=== PATIENT | female | born 1950 | race Caucasian/White ===

== ENCOUNTER 2017-09-24 14:47 | Emergency (ER) | payer BC ==
[2017-09-24 15:26] VITALS: BP 108/68
--- NOTE | 2017-09-24 16:48 | UC ---
Respiratory Complaint HPI - HPI Summary HPI Summary: PT WITH 3 DAYS OF SINUS PRESSURE, PND AND COUGH. FEELS VERY NAUSEATED AND IS NOT EATING MUCH. FEELS SHE IS GETTING WEAKER AND WEAKER EVERY DAY. HAS SUBJECTIVE FEVER AND OVERALL MALAISE. HAS SOME ABDOMINAL DISCOMFORT AND STATES HER BOWEL MVMTS HAVE BEEN DIFFERENT - SMALL PIECES. DENIES RECENT WEIGHT LOSS. - History of Current Complaint Chief Complaint: UCRespiratory Stated Complaint: SINUS PAIN, ACID REFLUX Time Seen by Provider: 09/24/17 15:37 Hx Obtained From: Patient Onset/Duration: Gradual Onset, Lasting Days, Still Present Timing: Constant Severity Initially: Moderate Severity Currently: Moderate Pain Intensity: 0 Pain Scale Used: 0-10 Numeric Character: Cough: Nonproductive Aggravating Factors: Nothing Alleviating Factors: Nothing Associated Signs And Symptoms: Positive: Fever, Sinus Discomfort. Negative: Dyspnea, Wheezing, Hemoptysis, Dizziness - Allergies/Home Medications Allergies/Adverse Reactions: Allergies Allergy/AdvReac Type Severity Reaction Status Date / Time latex Allergy Mild Rash And Verified 09/24/17 15:26 Itching PMH/Surg Hx/FS Hx/Imm Hx GI/ History: Gastroesophageal Reflux - Surgical History Surgical History: Yes Surgery Procedure, Year, and Place: carpal tunnel right - Family History Known Family History: Negative: Hypertension - Social History Alcohol Use: Occasionally Substance Use Type: None Smoking Status (MU): Never Smoked Tobacco Review of Systems Constitutional: Fatigue ENT: Sinus Congestion Respiratory: Cough Cardiovascular: Negative Gastrointestinal: Diarrhea, Nausea Neurological: Weakness All Other Systems Reviewed And Are Negative: Yes Physical Exam Triage Information Reviewed: Yes Appearance: No Pain Distress, Well-Nourished, Other: - APPEARS FATIGUED Vital Signs: Initial Vital Signs Temp 100.4 F 09/24/17 15:21 Pulse 83 09/24/17 15:21 Resp 18 09/24/17 15:21 BP 108/68 09/24/17 15:21 Pulse Ox 98 09/24/17 15:21 Vital Signs Reviewed: Yes Eyes: Positive: Conjunctiva Clear ENT: Positive: Hearing grossly normal, Pharynx normal, TMs normal. Negative: Sinus tenderness Neck: Positive: Supple, Nontender, No Lymphadenopathy Respiratory Exam: Normal Cardiovascular Exam: Normal Abdomen Description: Positive: Soft, Other: - TTP EPIGASTRIC AREA AND LLQ. Negative: Distended Bowel Sounds: Positive: Hyperactive Musculoskeletal: Positive: No Edema Neurological: Positive: Alert Psychological: Positive: Age Appropriate Behavior Skin: Negative: rashes UC Diagnostic Evaluation - Laboratory O2 Sat by Pulse Oximetry: 98 Respiratory Course/Dx - Course Course Of Treatment: PT WITH PROGRESSIVE WEAKNESS, NAUSEA, LOW GRADE TEMP, ABDOMINAL PAIN AND CHANGE IN BOWEL HABITS. CONCERN FOR MORE SERIOUS UNDERLYING CONDITION. PT DECLINES TRANSFER TO ED. ADVISED THAT SHE COULD BE RISKING WORSENING OF HER CONDITION THAT COULD POSE A THREAT TO HER LIFE, HEALTH AND MEDICAL SAFETY. SHE VERBALIZES UNDERSTANDING AND CONTINUES TO DECLINE TRANSFER. - Differential Dx/Diagnosis Provider Diagnoses: WEAKNESS/NAUSEA Discharge - Sign-Out/Discharge Documenting (check all that apply): Discharge - Discharge Plan Condition: Stable Disposition: HOME Prescriptions: Ondansetron ODT TAB* [Zofran Odt TAB*] 4 mg PO Q6H PRN #20 tab.odt PRN Reason: Nausea/Vomiting Patient Education Materials: Weakness (ED), Abdominal Pain (ED) Referrals: Susu Conde MD [Primary Care Provider] - If Needed Additional Instructions: YOUR NAUSEA MAY BE DUE TO YOUR RECENT UPPER RESPIRATORY SYMPTOMS BUT I AM CONCERNED FOR MORE SERIOUS UNDERLYING CONDITION GIVEN YOUR LACK OF APPETITE AND PROGRESSIVE WEAKNESS. YOU HAVE DECLINED TRANSFER TO THE ED TODAY WITH THE UNDERSTANDING THAT YOUR CONDITION MAY WORSEN LEADING TO RESPIRATORY DISTRESS/FAILURE, CARDIAC ARREST, /DISABILITY. GO TO THE ER WITHOUT FAIL IF YOU DEVELOP WORSENING PAIN, NAUSEA, WEAKNESS, FEVER OR ANY OTHER CONCERNING SYMPTOMS. - Billing Disposition and Condition Condition: STABLE Disposition: HOME
== END 2017-09-24 16:10 | disposition home or self-care (01) ==
LOC: UCEAST 14:47
DX: R53.1 Weakness (principal); R11.0 Nausea
CPT/HCPCS: 99212; G0463

== ENCOUNTER 2017-09-25 19:42 | Emergency (ER) | payer BC ==
[2017-09-25] MEDS ORDERED: NS 0.9% 1000 ML* 1,000 ML IV ONE (20:56)
[2017-09-25] MEDS ORDERED: Meclizine TAB* 12.5 MG PO ONE (20:59)
[2017-09-25 21:16] LABS: ABS Basophils 0 10^3/ul (0-0.2); ABS Eosinophils 0 10^3/ul (0-0.6); ABS Lymphocytes 1.1 10^3/ul (1.0-4.8); ABS Monocytes 0.5 10^3/ul (0-0.8); ABS Neutrophils 2.6 10^3/ul (1.5-7.7); ABS Nucleated RBC 0 10^3/ul; Eosinophil % 0.4 % (0-6); Hematocrit 41 % (35-47); Hemoglobin 13.7 g/dl (12.0-16.0); Lymphocyte % 25.3 % (25-47); Mean Corpuscular HGB Conc 33 g/dl (31-36); Mean Corpuscular Hemoglobin 29 pg (27-31); Mean Corpuscular Volume 87 fL (80-97); Mean Platelet Volume 7.2 um3 (7.4-10.4); Nucleated Red Blood Cells % 0.2; Platelet Count 169 10^3/ul (150-450); Red Blood Count 4.76 10^6/ul (4.0-5.4); Red Cell Distribution Width 14 % (10.5-15); White Blood Count 4.3 10^3/ul (3.5-10.8)
[2017-09-25 21:24] LABS: INR 0.86 (0.77-1.02)
--- NOTE | 2017-09-25 21:45 | RAD ---
INDICATION: Shortness of breath, cough. Respiratory infection. Comparison: August 17, 2017 CT Technique: Upright AP 2124 hours Report: Elevated lung volumes. Large hiatal hernia filling the LEFT inferior thorax with associated compressive atelectasis at the LEFT lung base without change. The lungs and pleural spaces are otherwise clear. Negative for pneumothorax. Negative for cardiomegaly. Unremarkable central pulmonary vasculature. Mild superior displacement of the LEFT hilum due to the large hiatal hernia based on correlation with CT. IMPRESSION: 1. Stigmata of chronic obstructive pulmonary disease. No acute cardiopulmonary process evident. 2. Chronic large hiatal hernia with associated basilar compressive atelectasis.
--- NOTE | 2017-09-25 21:50 | RAD ---
Indication: Dizziness. Weakness and nausea. Comparison: No relevant prior exams available [place] [facility] [place]. Technique: Noncontrast CT vertex of skull through foramen magnum. Report: The sulci, ventricles, and basal cisterns are normal for age. Mathis matter white matter differentiation is preserved without evidence for edema. No intra or extra axial hemorrhage, mass, or fluid collection detected. Unremarkable visualized orbital contents. Unremarkable calvarium and skull base. Unremarkable scalp. Partial opacification of the RIGHT frontal sinus. Negative for paranasal sinus fluid levels within the [id number]. Clear mastoid air spaces. IMPRESSION: 1. No acute CT abnormality of the brain evident. 2. RIGHT frontal paranasal sinus disease without compelling stigmata of acute sinusitis.
[2017-09-25] MEDS ORDERED: Levofloxacin TAB* 500 MG PO ONE (21:57)
[2017-09-25 22:51] VITALS: BP 118/65
--- NOTE | 2017-09-26 10:30 | ED ---
Sheeba Hernadez Edward, scribed for Tc Pacheco on 09/25/17 at 2048 . Complex/Multi-Sys Presentation - HPI Summary HPI Summary: 67 y/o female presents to the ED c/o general weakness and dizziness for a couple of days, worsening today. Pt states she is dizzy even at rest. Pt states she has a sinus infection. Pt was seen at [facility] yesterday. Associated sx: diarrhea (1x this morning), sore throat. PMHx hiatal hernia. - History Of Current Complaint Chief Complaint: EDNauseaVomitDiarrh Time Seen by Provider: 09/25/17 20:46 Hx Obtained From: Patient Onset/Duration: Lasting Days, Still Present Timing: Days Associated Signs And Symptoms: Positive: Dizziness, Weakness, Diarrhea, Other - sore throat - Allergies/Home Medications Allergies/Adverse Reactions: Allergies Allergy/AdvReac Type Severity Reaction Status Date / Time latex Allergy Mild Rash And Verified 09/24/17 15:26 Itching PMH/Surg Hx/FS Hx/Imm Hx Previously Healthy: No GI History: Reports: Hx Hiatal Hernia Musculoskeletal History: Denies: Hx Osteoporosis - Surgical History Surgery Procedure, Year, and Place: carpal tunnel right Infectious Disease History: No Infectious Disease History: Denies: Traveled Outside the [place] in Last 30 Days - Family History Known Family History: Negative: Hypertension - Social History Alcohol Use: Occasionally Hx Substance Use: No Substance Use Type: Reports: None Hx Tobacco Use: No Smoking Status (MU): Never Smoked Tobacco Review of Systems Constitutional: Negative Eyes: Negative Positive: Sore Throat Cardiovascular: Negative Respiratory: Negative Positive: Diarrhea Genitourinary: Negative Musculoskeletal: Negative Skin: Negative Neurological: Other - dizziness Positive: Weakness Psychological: Normal All Other Systems Reviewed And Are Negative: Yes Physical Exam - Summary Physical Exam Summary: Appearance: Well appearing, no pain distress Skin: warm, dry, reflects adequate perfusion Head/face: normal Eyes: EOMI, STARLA ENT: normal Neck: supple, non-tender Respiratory: CTA, breath sounds present Cardiovascular: RRR, pulses symmetrical Abdomen: non-tender, soft Bowel: present Musculoskeletal: normal, strength/ROM intact Neuro: normal, sensory motor intact, A&Ox3 Triage Information Reviewed: Yes Vital Signs On Initial Exam: Initial Vitals Temp Pulse Resp BP Pulse Ox 98.8 F 79 20 124/71 96 09/25/17 19:50 09/25/17 19:50 09/25/17 19:50 09/25/17 19:50 09/25/17 19:50 Vital Signs Reviewed: Yes Diagnostics - Vital Signs Vital Signs Temp Pulse Resp BP Pulse Ox 09/25/17 19:50 98.8 F 79 20 124/ 96 - Laboratory Lab Results: Lab Results 09/25/17 09/25/17 09/25/17 Range/Units 21:05 21:05 21:05 WBC 4.3 (3.5-10.8) 10^3/ul RBC 4.76 (4.0-5.4) 10^6/ul Hgb 13.7 (12.0-16.0) g/dl Hct 41 (35-47) % MCV 87 (80-97) fL MCH 29 (27-31) pg MCHC 33 (31-36) g/dl RDW 14 (10.5-15) % Plt Count 169 (150-450) 10^3/ul MPV 7.2 L (7.4-10.4) um3 Neut % (Auto) 61.0 (38-83) % Lymph % (Auto) 25.3 (25-47) % Payette % (Auto) 12.5 H (0-7) % Eos % (Auto) 0.4 (0-6) % Baso % (Auto) 0.8 (0-2) % Absolute Neuts (auto) 2.6 (1.5-7.7) 10^3/ul Absolute Lymphs (auto) 1.1 (1.0-4.8) 10^3/ul Absolute Monos (auto) 0.5 (0-0.8) 10^3/ul Absolute Eos (auto) 0 (0-0.6) 10^3/ul Absolute Basos (auto) 0 (0-0.2) 10^3/ul Absolute Nucleated RBC 0 10^3/ul Nucleated RBC % 0.2 INR (Anticoag Therapy) 0.86 (0.77-1.02) APTT 31.0 (26.0-36.3) seconds Sodium 137 (133-145) mmol/L Potassium 3.5 (3.5-5.0) mmol/L Chloride 103 (101-111) mmol/L Carbon Dioxide 26 (22-32) mmol/L Anion Gap 8 (2-11) mmol/L BUN 11 (6-24) mg/dL Creatinine 0.82 (0.51-0.95) mg/dL Est GFR ( Amer) 90.0 (>60) Est GFR (Non-Af Amer) 70.0 (>60) BUN/Creatinine Ratio 13.4 (8-20) Glucose 101 H (70-100) mg/dL Lactic Acid (0.5-2.0) mmol/L Calcium 8.7 (8.6-10.3) mg/dL Total Bilirubin 0.30 (0.2-1.0) mg/dL AST 27 (13-39) U/L ALT 20 (7-52) U/L Alkaline Phosphatase 47 (34-104) U/L Troponin I 0.00 (<0.04) ng/mL Total Protein 6.5 (6.4-8.9) g/dL Albumin 3.7 (3.2-5.2) g/dL Globulin 2.8 (2-4) g/dL Albumin/Globulin Ratio 1.3 (1-3) 09/25/17 Range/Units 21:05 WBC (3.5-10.8) 10^3/ul RBC (4.0-5.4) 10^6/ul Hgb (12.0-16.0) g/dl Hct (35-47) % MCV (80-97) fL MCH (27-31) pg MCHC (31-36) g/dl RDW (10.5-15) % Plt Count (150-450) 10^3/ul MPV (7.4-10.4) um3 Neut % (Auto) (38-83) % Lymph % (Auto) (25-47) % Payette % (Auto) (0-7) % Eos % (Auto) (0-6) % Baso % (Auto) (0-2) % Absolute Neuts (auto) (1.5-7.7) 10^3/ul Absolute Lymphs (auto) (1.0-4.8) 10^3/ul Absolute Monos (auto) (0-0.8) 10^3/ul Absolute Eos (auto) (0-0.6) 10^3/ul Absolute Basos (auto) (0-0.2) 10^3/ul Absolute Nucleated RBC 10^3/ul Nucleated RBC % INR (Anticoag Therapy) (0.77-1.02) APTT (26.0-36.3) seconds Sodium (133-145) mmol/L Potassium (3.5-5.0) mmol/L Chloride (101-111) mmol/L Carbon Dioxide (22-32) mmol/L Anion Gap (2-11) mmol/L BUN (6-24) mg/dL Creatinine (0.51-0.95) mg/dL Est GFR ( Amer) (>60) Est GFR (Non-Af Amer) (>60) BUN/Creatinine Ratio (8-20) Glucose (70-100) mg/dL Lactic Acid 0.6 (0.5-2.0) mmol/L Calcium (8.6-10.3) mg/dL Total Bilirubin (0.2-1.0) mg/dL AST (13-39) U/L ALT (7-52) U/L Alkaline Phosphatase (34-104) U/L Troponin I (<0.04) ng/mL Total Protein (6.4-8.9) g/dL Albumin (3.2-5.2) g/dL Globulin (2-4) g/dL Albumin/Globulin Ratio (1-3) Result Diagrams: 09/25/17 21:05 09/25/17 21:05 Lab Statement: Any lab studies that have been ordered have been reviewed, and results considered in the medical decision making process. - Radiology CXR Xray Interpretation: No Acute Changes - 1. Stigmata of chronic obstructive pulmonary disease. No acute cardiopulmonary process evident. 2. Chronic large hiatal hernia with associated basilar compressive atelectasis. Radiology Interpretation Completed By: Radiologist - CT BRAIN CT CT Interpretation: No Acute Changes - 1. No acute CT abnormality of the brain evident. 2. RIGHT frontal paranasal sinus disease without compelling stigmata of acute sinusitis. CT Interpretation Completed By: Radiologist - EKG 1 EKG Interpretation: 21:48 - SR @ 65 BPM. No acute changes Re-Evaluation - Re-Evaluation 1 Re-Evaluation Time: 21:40 Change: Improved - Pt feels better with antivert Complex Multi-Symp Course/Dx Assessment/Plan: 67 y/o female presents to the ED c/o general weakness and dizziness for a couple of days, worsening today. Pt states she is dizzy even at rest. Pt states she has a sinus infection. Pt was seen at [facility] yesterday. Associated sx: diarrhea (1x this morning), sore throat. PMHx hiatal hernia. CXR SHOWS 1. Stigmata of chronic obstructive pulmonary disease. No acute cardiopulmonary process evident. 2. Chronic large hiatal hernia with associated basilar compressive atelectasis. EKG - 21:48 - SR @ 65 BPM. No acute changes. BRAIN CT 1. No acute CT abnormality of the brain evident. 2. RIGHT frontal paranasal sinus disease without compelling stigmata of acute sinusitis. Pt will be d/c with f/u with PCP. - Diagnoses Differential Diagnoses/HQI/PQRI: Sepsis, Urinary Tract Infection, Other - dizziness/vertigo/cva Provider Diagnoses: Vertigo, Sinusitis Discharge - Sign-Out/Discharge Documenting (check all that apply): Discharge - Discharge Plan Condition: Stable Disposition: HOME Prescriptions: Levofloxacin TAB* [Levaquin TAB*] 500 mg PO DAILY #9 tab Meclizine HCl 25 mg PO TID #20 tab.chew MDD 3 Patient Education Materials: Sinusitis (ED), Vertigo (ED) Referrals: Susu Conde MD [Primary Care Provider] - 4 Days (PLEASE F/U IN 3-5 DAYS) - Billing Disposition and Condition Condition: STABLE Disposition: HOME The documentation as recorded by the Sheeba payton Edward accurately reflects the service I personally performed and the decisions made by , Tc Pacheco.
== END 2017-09-25 22:51 | disposition home or self-care (01) ==
LOC: ED 19:42
DX: R42 Dizziness and giddiness (principal); R53.1 Weakness; J32.9 Chronic sinusitis, unspecified
CPT/HCPCS: 36415; 70450; 71045; 80053; 83605; 84484; 85025; 85610; 85730; 93005; 96360; 99283; A9270-GY